=== PATIENT | male | born 1985 | race Hispanic/Latino ===

== ENCOUNTER 2018-06-06 13:09 | Emergency (ER) | payer SELFPAY ==
[2018-06-06] MEDS ORDERED: Dexamethasone 4 mg/ml Vial ONE (13:42)
--- NOTE | 2018-06-06 13:55 | RAD ---
TWO VIEWS CHEST: History: Dyspnea. FINDINGS: PA and lateral views demonstrate the lungs to be well aerated. No evidence of active intrathoracic di sease seen. No evidence of effusions, pneumonia, or pneumothorax is seen. IMPRESSION: Normal two views chest. POS: [facility]
== END 2018-06-06 14:30 | disposition home or self-care (01) ==
LOC: ERS 13:09
DX: J45.901 Unspecified asthma with (acute) exacerbation (principal)
CPT/HCPCS: 71045; 71046; 94640; J1100; J7620

== ENCOUNTER 2018-07-24 22:18 | Emergency (ER) | payer SELFPAY ==
[2018-07-25] MEDS ORDERED: predniSONE 20 MG TAB ONE (00:19)
== END 2018-07-25 00:23 | disposition home or self-care (01) ==
LOC: ERS 22:18
DX: J45.901 Unspecified asthma with (acute) exacerbation (principal); Z79.899 Other long term (current) drug therapy
CPT/HCPCS: 94640; J7506; J7620

== ENCOUNTER 2018-11-11 18:23 | Emergency (ER) | payer SELFPAY ==
--- NOTE | 2018-11-11 19:25 | RAD ---
FExam: 2 views chest Provided clinical history: Chest pain FINDINGS: Comparison 06/06/2018. Cardiac and mediastinal silhouette is within normal limits. Lungs appear clear . No pleural fluid or pneumothorax apparent. IMPRESSION: No evidence for an acute cardiopulmonary process.
[2018-11-11] MEDS ORDERED: Dexamethasone 10 MG/ML VIAL ONE (19:47)
== END 2018-11-11 20:25 | disposition home or self-care (01) ==
LOC: ERS 18:23
DX: J20.9 Acute bronchitis, unspecified (principal); I10 Essential (primary) hypertension; G47.30 Sleep apnea, unspecified; J45.909 Unspecified asthma, uncomplicated; Z79.51 Long term (current) use of inhaled steroids
CPT/HCPCS: 71046; 94640; J1100; J7620

== ENCOUNTER 2019-02-12 20:53 | Emergency (ER) | payer SELFPAY ==
[2019-02-12] MEDS ORDERED: predniSONE 20 MG TAB ONE (22:21)
== END 2019-02-12 22:27 | disposition home or self-care (01) ==
LOC: ERS 20:53
DX: J45.901 Unspecified asthma with (acute) exacerbation (principal); G47.30 Sleep apnea, unspecified; I10 Essential (primary) hypertension; Z87.01 Personal history of pneumonia (recurrent)
CPT/HCPCS: 94640; J7512

== ENCOUNTER 2019-02-24 22:58 | Emergency (ER) | payer SELFPAY ==
[2019-02-25 01:10] LABS: #Eosinphils 0.5 thou/uL (0.0-0.7); #Lymphocytes 2.3 thou/uL (1.20-3.40); #Monocytes 0.5 thou/uL (0.11-0.59); #Neutrophils 5.2 thou/uL (1.40-6.50); %Basophils 0.3 % (0.0-1.0); %Lymphocytes 26.7 % (21.0-51.0); %Neutrophils 60.9 % (42.0-75.0); Hemoglobin 13.7 g/dL (14.0-18.0); Mean Corpuscular Hemoglobin 26.9 pg (27.0-31.0); Mean Corpuscular Volume 83.9 fL (78.0-98.0); Mean Platelet Volume 10.3 fL (7.4-10.4); Platelet Count 180 thou/uL (130-400); Red Blood Cell (RBC) Count 5.11 mill/uL (4.70-6.10); White Blood Cell (WBC) Count 8.5 thou/uL (4.8-10.8)
[2019-02-25 01:31] LABS: ALT (SGPT) 45 U/L (8-55); AST (SGOT) 19 U/L (5-34); Albumin 4.3 g/dL (3.5-5.0); Alkaline Phosphatase 68 U/L (40-150); Anion Gap 9 mmol/L (10-20); BUN (Urea Nitrogen) 14 mg/dL (8.9-20.6); Bilirubin, Total 0.2 mg/dL (0.2-1.2); Calc. Creatinine Clearance 0 mL/min (70-130); Calcium 9.4 mg/dL (7.8-10.44); Carbon Dioxide 31 mmol/L (22-29); Chloride 107 mmol/L (98-107); Estimated GFR-MDRD 75; Globulin 2.7 g/dL (2.4-3.5); Glucose 128 mg/dL (70-105); Potassium 3.9 mmol/L (3.5-5.1); Sodium 143 mmol/L (136-145)
--- NOTE | 2019-02-25 07:37 | RAD ---
Portable frontal chest radiograph: 02/25/2019 COMPARISON: None HISTORY: Syncope FINDINGS: Lungs are clear. Heart and mediastinal contours appear within normal limits. IMPRESSION: No acute findings.
--- NOTE | 2019-03-01 16:37 | EKG ---
Test Reason : Blood Pressure : / mmHG Vent. Rate : 092 BPM Atrial Rate : 092 BPM P-R Int : 130 ms QRS Dur : 092 ms QT Int : 372 ms P-R-T Axes : 021 037 034 degrees QTc Int : 460 ms Normal sinus rhythm Cannot rule out Anterior infarct , age undetermined Abnormal ECG Confirmed by TANNA PEREZ D.O. ([id number]), welder assistant PAMELA CARRASCO ([id number]) on 03/01/2019 4:36:28 PM Referred By: Confirmed By:TANNA PEREZ D.O.
== END 2019-02-25 01:54 | disposition home or self-care (01) ==
LOC: ERS 22:58
DX: K52.9 Noninfective gastroenteritis and colitis, unspecified (principal); E86.0 Dehydration
CPT/HCPCS: 71045; 80053; 84484; 85025; 93005; 96360

== ENCOUNTER 2019-09-24 03:25 | Emergency (ER) | payer SELFPAY ==
[2019-09-24] MEDS ORDERED: Dexamethasone 10 MG/ML VIAL ONE (03:44)
== END 2019-09-24 03:54 | disposition home or self-care (01) ==
LOC: ERS 03:25
DX: J02.8 Acute pharyngitis due to other specified organisms (principal); B97.89 Other viral agents as the cause of diseases classified elsewhere; J45.909 Unspecified asthma, uncomplicated; G47.30 Sleep apnea, unspecified; I10 Essential (primary) hypertension
CPT/HCPCS: 99283; J1100